=== PATIENT | male | born 1985 ===

== ENCOUNTER 2019-08-15 10:58 | Outpatient (RCR) | payer OTHER, SELFPAY | END 2019-09-02 00:01 | LOC: WOUND 10:58 | PROVIDERS: Visit Provider Surgery | DX: J86.9 Pyothorax without fistula (principal); I96 Gangrene, not elsewhere classified; F17.210 Nicotine dependence, cigarettes, uncomplicated | CPT/HCPCS: 11042; 99212 ==

== ENCOUNTER 2020-04-20 20:18 | Emergency (ER) | payer SELFPAY ==
--- NOTE | 2020-04-20 20:23 | XR_ITS ---
WS: [id number] EXAM: RIGHT FOOT: 3 VIEWS DATE OF EXAMINATION: 04/20/2020, 2036 hours COMPARISON: None. HISTORY: 34 years old with foot pain status post fall skateboarding. FINDINGS: Bone density is normal in appearance. There is an intra-articular fracture involving the base of the fifth metatarsal bone with associated soft tissue swelling in this region. Slight arthritis first met atarsal phalangeal joint. No additional acute fracture is seen. No soft tissue abnormality noted. XR/XR foot RT min 3V* [id number] IMPRESSION: Minimally displaced intra-articular fracture involving the base of the fifth me tatarsal bone.
[2020-04-20 20:27] VITALS: BP 112/83; PULSE 90; RESP 18; TEMP 36.8; O2SAT 98; BMI 25.8
--- NOTE | 2020-04-20 20:51 | W.ED.EXTPRO ---
HPI - Extremity Problem General: Chief complaint: Extremity Injury, Lower Stated complaint: right foot injury Time Seen by Provider: 04/20/20 20:44 Source: patient Mode of arrival: ambulatory Limitations: no limitations History of Present Illness: HPI Narrative: 34-year-old male states he was skateboarding and had a fall today. He states he injured his right foot and right foot pain since then. States pain is sharp in nature and rates it a 5 out of 10. Denies any other injuries. Denies hitting his head. Associated symptoms: Deny chest pain, fever(s) or rash Review of Systems Const: Denies: fever(s), chills, body aches or change in appetite Eyes: Denies: blurry vision or eye discomfort ENMT: Denies: throat pain or dental pain Card: Denies: chest pain Resp: Denies: dyspnea GI: Denies: abdominal pain, nausea, vomiting or diarrhea : Denies: dysuria Musc: Reports: joint pain; Denies: neck pain or back pain Skin/Breast: Denies: rash Neuro: Denies: headache(s) Psych: Denies: depression Angel/Lymph: Denies: easy bruising All/Imm: Denies: urticaria Physical Exam Const: COMMON NORMALS: no acute distress, patient oriented x3 and healthy appearing HENMT: COMMON NORMALS: normocephalic and atraumatic HEAD & SCALP: normocephalic and atraumatic Eye: COMMON NORMALS: Equal, round and reactive pupils present and EOMs intact bilaterally PUPIL: Yes Equal, round and reactive pupils present Neck/C-Spine: COMMON NORMALS: full ROM and supple Chest: COMMONS NORMALS: normal inspection of the chest and normal palpation of entire chest wall Resp: COMMON NORMALS: normal respiratory effort, No retractions, No use of accessory muscles and clear to auscultation bilaterally AUSCULTATION: clear to auscultation bilaterally Cardio: COMMON NORMALS: regular rate, regular rhythm and No murmurs present (Cardio) RATE: regular rate RHYTHM: regular rhythm GI: COMMON NORMALS: Normal to inspection, nondistended, normoactive bowel sounds present, Soft to palpation, non-tender and no masses PALPATION: Yes Soft to palpation Extremity: COMMON NORMALS: normal to inspection and full ROM Neuro: COMMON NORMALS: patient oriented x3, moves all extremities and no focal motor deficits Psych: COMMON NORMALS: mental status grossly normal, Normal thought process present and cooperative THOUGHT PROCESS: Normal thought process present Skin: COMMON NORMALS: no rashes or lesions noted and no wounds GENERAL SKIN EXAM: no rashes or lesions noted Course Vital Signs: Vital signs: Vital Signs Temperature 98.3 F 04/20/20 20:27 Pulse Rate 90 04/20/20 20:27 Respiratory Rate 18 04/20/20 20:27 Blood Pressure 112/83 04/20/20 20:27 Pulse Oximetry 98 04/20/20 20:27 MDM - Extremity (Nontraumatic) MDM Narrative: Medical decision making narrative: Patient presents with a foot fracture from a fall. Patient placed in a splint given crutches and is to follow-up with Dr. Gonzalez. Patient is stable for discharge. He has no signs of any other injuries. Imaging Data^: xr r foot: Attestation: I personally reviewed and interpreted this imaging study as follows: My impression: fracture at base of fifth metatarsal Discharge Plan Discharge Patient Disposition: Home Clinical Impression: Foot fracture, right Qualifiers: Encounter type: initial encounter Fracture type: closed Qualified Code(s): S92.901A - Unspecified fracture of right foot, initial encounter for closed fracture Condition: Stable Prescriptions: [place] 5-325 mg tablet 1 tab PO Q6H PRN (Reason: pain) Qty: 8 RF: 0 Naprosyn 500 mg tablet 500 mg PO BID PRN (Reason: pain) Qty: 20 RF: 0 Discharge Orders: Discharge Order (Routine); Ordered 04/20/20 Ordered By: García Parker Referrals: Jose Gonzalez MD [Physician] - 1-3 days Discharge Diet: Advance as tolerated Discharge Activity: Resume usual activity Coding Level of Care Code ED Human Resources Consultant for [facility] Shailesh
[2020-04-20 22:03] VITALS: BP 120/77; PULSE 72; RESP 14; O2SAT 99
--- NOTE | 2020-04-21 10:23 | DCPLANNER ---
school business manager had message to schedule a follow up appointment for patient with ortho. school business manager called the ortho clinic, spoke with Vira, gave clinic patients information. school business manager was told that patients information would be printed and reviewed. Clinic will call patient with appointment information.
--- NOTE | 2020-04-22 11:28 | DCPLANNER ---
Patient had a follow up appointment scheduled for 04.22.20 with ortho - patient did attend the appointment.
== END 2020-04-20 22:06 | disposition home or self-care (01) ==
PROVIDERS: Emergency Provider Emergency Medicine
DX: S92.351A Displaced fracture of fifth metatarsal bone, right foot, initial encounter for closed fracture (principal); V00.131A Fall from skateboard, initial encounter
CPT/HCPCS: 12345; 29515; 73630; 99281; 99283; E0114

== ENCOUNTER → 2020-05-06 08:16 | Outpatient (BNVA) | payer SELFPAY | PROVIDERS: Visit Provider Podiatrist Foot & Ankle Surgery | DX: S92.351A Displaced fracture of fifth metatarsal bone, right foot, initial encounter for closed fracture (principal); X58.XXXA Exposure to other specified factors, initial encounter | CPT/HCPCS: 73630 ==

== ENCOUNTER → 2020-05-20 08:11 | Outpatient (BNVA) | payer SELFPAY | PROVIDERS: Visit Provider Podiatrist Foot & Ankle Surgery | DX: S92.351D Displaced fracture of fifth metatarsal bone, right foot, subsequent encounter for fracture with routine healing (principal); X58.XXXD Exposure to other specified factors, subsequent encounter | CPT/HCPCS: 73630 ==

== ENCOUNTER → 2020-06-14 08:08 | Outpatient (BNVA) | payer SELFPAY | PROVIDERS: Visit Provider Podiatrist Foot & Ankle Surgery | DX: S92.531A Displaced fracture of distal phalanx of right lesser toe(s), initial encounter for closed fracture (principal); X58.XXXA Exposure to other specified factors, initial encounter | CPT/HCPCS: 73630 ==

== ENCOUNTER → 2020-06-15 08:22 | Outpatient (BNVA) | payer OTHER, SELFPAY | PROVIDERS: Visit Provider Podiatrist Foot & Ankle Surgery | DX: Z11.59 Encounter for screening for other viral diseases (principal) | CPT/HCPCS: 87635 ==

== ENCOUNTER 2020-06-16 22:33 | Emergency (ER) | payer SELFPAY ==
[2020-06-16 22:36] VITALS: BP 117/77; PULSE 89; RESP 17; TEMP 36.6; O2SAT 96; BMI 23.6
--- NOTE | 2020-06-16 22:38 | W.ED.ANXIETY ---
HPI - Anxiety General: Stated Complaint: ANXIETY Time Seen by Provider: 06/16/20 22:36 Source: patient Mode of arrival: ambulatory Limitations: no limitations History of Present Illness: HPI narrative: 34-year-old male who has a Bowers fracture to his right foot and is scheduled for surgery on Sunday. He states he has been having severe anxiety about his surgery. He does appear nervous. He has not been taking anything. Has no other complaints. He does have some slight pain he rates a 2 out of 10. MD complaint: anxiety Associated symptoms: Deny chest pain, chills, fever(s), headache(s), nausea or vomiting Review of Systems Const: Denies: fever(s), chills, body aches or change in appetite Eyes: Denies: blurry vision or eye discomfort ENMT: Denies: throat pain or dental pain Card: Denies: chest pain Resp: Denies: dyspnea GI: Denies: abdominal pain, nausea, vomiting or diarrhea : Denies: dysuria Musc: Denies: neck pain or back pain Skin/Breast: Denies: rash Neuro: Denies: headache(s) Psych: Reports: anxiety Angel/Lymph: Denies: easy bruising All/Imm: Denies: urticaria PFSH ED PFSH: Medical History No pertinent past medical history Surgical History H/O exploratory laparotomy Physical Exam Const: COMMON NORMALS: no acute distress, patient oriented x3 and healthy appearing HENMT: COMMON NORMALS: normocephalic and atraumatic HEAD & SCALP: normocephalic and atraumatic Eye: COMMON NORMALS: Equal, round and reactive pupils present and EOMs intact bilaterally PUPIL: Yes Equal, round and reactive pupils present Neck/C-Spine: COMMON NORMALS: full ROM and supple Chest: COMMONS NORMALS: normal inspection of the chest and normal palpation of entire chest wall Resp: COMMON NORMALS: normal respiratory effort, No retractions, No use of accessory muscles and clear to auscultation bilaterally AUSCULTATION: clear to auscultation bilaterally Cardio: COMMON NORMALS: regular rate, regular rhythm and No murmurs present (Cardio) RATE: regular rate RHYTHM: regular rhythm GI: COMMON NORMALS: Normal to inspection, nondistended, normoactive bowel sounds present, Soft to palpation, non-tender and no masses PALPATION: Yes Soft to palpation Extremity: COMMON NORMALS: normal to inspection and full ROM Neuro: COMMON NORMALS: patient oriented x3, moves all extremities and no focal motor deficits Psych: COMMON NORMALS: mental status grossly normal, Normal thought process present and cooperative THOUGHT PROCESS: Normal thought process present Skin: COMMON NORMALS: no rashes or lesions noted and no wounds GENERAL SKIN EXAM: no rashes or lesions noted MDM - Anxiety MDM Narrative: Medical decision making narrative: Patient presents with anxiety. Will give him Ativan here and writing Vistaril for home. He is well-appearing and stable for discharge. Discharge Plan Discharge Patient Disposition: Home Clinical Impression: Anxiety Condition: Stable Prescriptions: New Vistaril 25 mg capsule 25 mg PO Q8H PRN (Reason: anxiety) Qty: 14 RF: 0 No Action hydrocodone-acetaminophen [[place]] 7.5-325 mg tablet 1 tab PO Q4H PRN (Reason: pain) 7 Days Qty: 30 RF: 0 hydrocodone-acetaminophen [[place]] 5-325 mg tablet 1 tab PO Q6H PRN (Reason: pain) 7 Days Qty: 28 RF: 0 hydrocodone-acetaminophen [[place]] 5-325 mg tablet 1 tab PO Q4H PRN (Reason: pain) 7 Days Qty: 30 RF: 0 Naprosyn 500 mg tablet 500 mg PO BID PRN (Reason: pain) Qty: 20 RF: 0 Discharge Orders: Discharge Order (Routine); Ordered 06/16/20 Ordered By: García Parker Discharge Diet: Advance as tolerated Discharge Activity: Resume usual activity Patient Instructions: Anxiety (ED) Coding Level of Care Code 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
[2020-06-16 22:52] VITALS: PULSE 66; RESP 17; O2SAT 96
== END 2020-06-16 22:47 | disposition home or self-care (01) ==
PROVIDERS: Emergency Provider Emergency Medicine
DX: F41.9 Anxiety disorder, unspecified (principal)
CPT/HCPCS: 12345; 99281; 99282

== ENCOUNTER 2020-06-18 05:57 | Day surgery (SDC) | payer SELFPAY ==
[2020-06-17 16:00] VITALS: BMI 24.4
--- NOTE | 2020-06-18 | SCC_ITS ---
Procedure Done: Open reduction internal fixation right fifth Metatarsal fracture 23 seconds of fluoroscopic guidance, for a cumulative dose of 0.3 mGy, was provided to Dr. Umaña by the radiology department. C-arm images of the RIGHT foot were saved for the patient's permanent record. [facility]
--- NOTE | 2020-06-18 | XR_ITS ---
WS: [id number] C-ARM RADIOGRAPHS RIGHT FOOT; 2 IMAGES HISTORY: ORIF 5th right metatarsal COMPARISON: 06/14/2020 Limited evaluation of the RIGHT foot. There is hardware projecting in expected location of the fifth metatarsal. XR/XR foot RT 2V [id number] IMPRESSION: Intraoperative imaging during fixation fifth metatarsal.
[2020-06-18] MEDS: sodium chloride 0.9% 1,000 ML 30 ML IV (06:30)
[2020-06-18 06:32] VITALS: BP 124/80; PULSE 92; RESP 18; TEMP 36.6; O2SAT 97
--- NOTE | 2020-06-18 06:36 | ANES.PREANE2 ---
Pre-Anesthetic Assessment Pre-Anesthetic Assessment: Height/Weight: Height 1.8 m Weight 79.379 kg Preop Diagnosis: Right fifth metatarsal fracture Proposed Procedure: Operation Date: 06/18/20 07:00 Proposed Procedures p ORIF right fifth Metatarsal fracture 93492 592.351A(Right) - Dylan Umaña DPM Familial anesthetic complications: None Last intake: NPO > 8 hrs Social: Social History: Tobacco Exam: Pre-Anes Outpt Exam: alert, oriented x 3, clear to auscultation bilaterally and regular rate & rhythm Airway: Cervical ROM: WNL (patient states he's unable to achieve 360 degrees of cervical rotation) MP: 3 Dentition: Chipped Hepatic: Hepatic: Hepatitis (Hepatitis C) Neuropsych: Neuropsych: Anxiety Anesthetic Plan: ASA status: 2 Anesthesia: MAC Risk of > 500 ml blood loss (7ml/kg in children): No PFSH Anesthesia PFSH: Medical History No pertinent past medical history Surgical History H/O exploratory laparotomy Data Anesthesia Cardiac Studies: No Data to Display
--- NOTE | 2020-06-18 06:41 | P.HPUD_ITS ---
Surgery/Procedure H&P Update DATE OF PROCEDURE: June 18, 2020 DATE H&P PERFORMED: 06/14/20 H&P UPDATE INFORMATION: I have reviewed H&P completed within last 30 days, I have examined patient prior to procedure, No changes to prior documentation and H&P is in [facility] EMR on date indicated PREOP DIAGNOSIS: Right fifth metatarsal fracture PLANNED PROCEDURE: Operation Date: 06/18/20 07:00 Proposed Procedures p ORIF right fifth Metatarsal fracture 44290 592.351A(Right) - Dylan Umaña DPM
--- NOTE | 2020-06-18 06:41 | PM.OP ---
Operative Report Date of procedure: June 18, 2020 Pre-op Diagnosis: Right fifth metatarsal fracture Post-op diagnosis: same Post-op Findings: None Procedure Done: Open reduction internal fixation right fifth Metatarsal fracture CPT code 84002 Implants: 4-0 nylon. Anant headed screw, partially-threaded, cannulated 5.0 mm x 50 mm Specimens removed/disposition: None Pathology: none sent Surgeon: Dylan Umaña DPM Motorized Squad Commanding Officer: Farhat Anesthesia: MAC Estimated blood loss: Less than 5 mL Tourniquet time: 18 minutes IV fluids: None Urine output: None Complications: None Condition: stable Disposition: PACU Brief History: Patient is a 34-year-old male sustained a right Bowers fracture approximately 2 months ago from a skateboarding accident, was noncompliant with weightbearing status during conservative care, he was advised to remain strict nonweightbearing he continue to walk with his cam boot and return to work. He has developed a delayed union continues to have pain in his right foot at the fracture site he is 2 months out from the time of injury without any significant interval of healing appreciated. Recommended open reduction internal fixation with medullary screw placement risks include pain, bleeding, numbness, infection, persistent delayed union, nonunion, malunion, damage to adjacent soft tissue structures including nerve and tendon, loss of function, persistent swelling, neuritis, need for further surgical intervention. Procedure: Under mild sedation the patient was brought to the operating room and placed on the operating table in supine position. A timeout was performed. Anesthesia was then administered by the anesthesia service. Local anesthesia injected by myself and a right ankle block fashion 30 cc of 0.5% Marcaine plain. Well-padded pneumatic tourniquet applied to the right ankle. Right lower extremity was then scrubbed, prepped and draped utilizing normal aseptic technique. Right foot was examined a weighted with an Esmarch bandage and the tourniquet inflated to 250 mmHg. Attention was directed to the dorsal lateral aspect of the right fifth metatarsal base bony landmarks were palpated including the tuberosity of the fifth metatarsal. Going high and inside with a guidewire for a 5 mm screw to aim the trajectory down the medullary canal guidewire was advanced in a antegrade fashion confirming placement within the medullary canal with AP, oblique and lateral views utilizing the mini C arm noted to be excellent. Utilizing standard AO technique a [place] 5.0 mm x 50 mm headed, partially-threaded cannulated screw was utilized to reduce and fixate the fracture site with reduction appreciated on fluoroscopy. Placement was noted to be excellent on all 3 views utilizing mini C arm. Screw was tightened to 2 finger tightness with the foot held in a neutral and slightly everted position eyes to relieve tension on the peroneal tendon. Guidewire was removed, incision site was flushed with saline solution and closed with 4-0 nylon. Tourniquet was deflated and a prompt hyperemic response was noted to the distal digits of the right foot. Incision site was dressed with Adaptic, sterile 4 x 4, Kerlix, Mario wrap and cam boot was applied. Patient tolerated the procedure and anesthesia well and was transferred to the PACU with vital sign stable and vascular status intact. Following a period of postoperative monitoring he will be discharged home with his girlfriend is to remain strict nonweightbearing to the right foot and elevate his right foot while at rest. Was provided additional pain medication and discharge instructions including my phone number will follow-up on June 25, 2020 at 10 AM in podiatry clinic.
[2020-06-18] MEDS: midazolam 1 mg/mL INJ 2 mL 2 MG IVP (06:44)
[2020-06-18 07:40] VITALS: BP 119/86; PULSE 70; RESP 16; TEMP 36.2; O2SAT 97
[2020-06-18] MEDS: HYDROcodone-acetaminophen 10-325 mg Tablet 1 TAB PO (07:47)
[2020-06-18 07:55] VITALS: BP 120/89; PULSE 70; RESP 16; TEMP 36.6; O2SAT 98
--- NOTE | 2020-06-18 08:34 | ANE.PACU2 ---
Inpatient post-anesthesia follow up: Airway intact: Yes Vital signs: Temperature 98 F Pulse Rate 70 Respiratory Rate 16 Blood Pressure 120/89 Pulse Oximetry 98 Oxygen Delivery Me thod Room Air Oxygen Flow Rate Fraction of Inspir ed Oxygen Hydration adequate: Yes Nausea and vomiting: No Pain level: 8 Mental status: Baseline Additional Comments: Patient offered possibility of nerve block, but he declined due to desire not to delay discharge and he did not want his foot to be numb. patient given norco before discharge.
--- NOTE | 2020-06-18 09:55 | SUR.PHASEII ---
6323 pt still c/o pain to right foot and refusing a block offered by dr hassan with anesthesia states he wants to go home and doesn't want his leg being numb just wants to go home,pt's girlfriend at bedside
== END 2020-06-18 08:45 | disposition home or self-care (01) ==
PROVIDERS: Visit Provider Podiatrist Foot & Ankle Surgery
PROC: (CPT 28485; principal; 2020-06-18 07:00)
DX: S92.351A Displaced fracture of fifth metatarsal bone, right foot, initial encounter for closed fracture (principal); V00.131A Fall from skateboard, initial encounter; B19.20 Unspecified viral hepatitis C without hepatic coma; F41.9 Anxiety disorder, unspecified
CPT/HCPCS: 28485; 12345; 73620; 76000; 96374; C1713; C9290; J0690; J2250; J2704; J3010; J3490; J7030

== ENCOUNTER → 2020-07-01 14:46 | Outpatient (BNVA) | payer SELFPAY | PROVIDERS: Visit Provider Podiatrist Foot & Ankle Surgery | DX: S92.351A Displaced fracture of fifth metatarsal bone, right foot, initial encounter for closed fracture (principal); Z98.890 Other specified postprocedural states; X58.XXXA Exposure to other specified factors, initial encounter | CPT/HCPCS: 73630 ==

== ENCOUNTER 2020-07-03 12:49 | Emergency (ER) | payer SELFPAY ==
[2020-07-03 12:53] VITALS: RESP 18
[2020-07-03 12:54] VITALS: BP 150/102; PULSE 85; RESP 16; TEMP 36.6; O2SAT 97; BMI 25.1
--- NOTE | 2020-07-03 13:18 | ED_ITS ---
HPI - Extremity Problem General: Chief complaint: Extremity Problem,Nontraumatic Stated complaint: pain in right foot after surgery 2wks ago Time Seen by Provider: 07/03/20 13:18 History of Present Illness: MD Complaint: extremity pain (right foot- pt had surgery to fix fracture on 5th metatarsal 2 weeks ago. Denies any reinjury to cause acute pain. ) Onset (ago): week(s) (Surgery to fix fracture-about 2 weeks ago.) Pain Consistency: constant Location: right and lower extremity Severity scale (1-10): 7 Quality: aching Radiation: none Relieving factors: medication (hydrocodone prescribed by Dr. Umaña.) Exacerbating factors: nothing Associated symptoms: Deny chest pain, fever(s) or rash Review of Systems Const: Denies: fever(s), chills or fatigue Eyes: Denies: change in vision or eye discomfort ENMT: Denies: throat pain, odynophagia, nasal discharge or nasal congestion Card: Denies: chest pain, palpitations, edema, swelling of feet/ankles, dyspnea on exertion or orthopnea Resp: Denies: dyspnea, productive cough or non-productive cough GI: Denies: abdominal pain, nausea, vomiting, diarrhea, constipation or hematochezia : Denies: flank pain, difficulty urinating, dysuria or hematuria Musc: Reports: extremity pain (right foot); Denies: neck pain, back pain or extremity swelling Skin/Breast: Denies: rash or new lesions Neuro: Denies: headache(s), numbness in extremities or weakness in extremities PFS ED PFSH: Medical History No pertinent past medical history Surgical History H/O exploratory laparotomy Physical Exam Const: COMMON NORMALS: no acute distress, patient oriented x3, healthy appearing and alert GENERAL APPEARANCE: cooperative and comfortable HENMT: COMMON NORMALS: normocephalic HEAD & SCALP: normocephalic MOUTH: Normal oral and palatal mucosa present THROAT: posterior oropharynx normal and uvula midline Neck/C-Spine: COMMON NORMALS: supple GENERAL: Yes normal visual inspection Resp: COMMON NORMALS: normal respiratory effort, No retractions, No use of accessory muscles and clear to auscultation bilaterally AUSCULTATION: clear to auscultation bilaterally Cardio: COMMON NORMALS: regular rate, regular rhythm, S1 normal heart sound present, S2 normal heart sound present, No gallops present (Cardio), No clicks present (Cardio), No murmurs present (Cardio) and Peripheral pulses 2+ throughout RATE: regular rate RHYTHM: regular rhythm HEART SOUNDS: S1 normal heart sound present and S2 normal heart sound present PERIPHERAL PULSES: Peripheral pulses 2+ throughout GI: COMMON NORMALS: Normal to inspection, nondistended, normoactive bowel sounds present, Soft to palpation, non-tender and no masses PALPATION: Yes Soft to palpation : COMMON NORMALS: Yes no CVA tenderness BLADDER/KIDNEY EXAM: Yes no CVA tenderness Back/Pelvis: COMMON NORMALS: no CVA tenderness Extremity: NARRATIVE EXTREMITY EXAM: Patient's right foot has surgical scar on it. No erythema or warmth present. No signs of infection around surgical site. GENERAL: Yes normal exam except as noted Neuro: COMMON NORMALS: patient oriented x3 and moves all extremities SENSORIUM/ORIENTATION: Yes alert Skin: COMMON NORMALS: no rashes or lesions noted GENERAL SKIN EXAM: no rashes or lesions noted Course Vital Signs: Vital signs: Vital Signs Temperature 97.8 F 07/03/20 12:54 Pulse Rate 85 07/03/20 12:54 Respiratory Rate 16 07/03/20 12:54 Blood Pressure 150/102 07/03/20 12:54 Pulse Oximetry 97 07/03/20 12:54 MDM - Extremity (Nontraumatic) MDM Narrative: Medical decision making narrative: Patient is a 34-year-old male who comes to the ED with acute right foot pain post fifth metatarsal fracture repair surgery. Denies reinjury or accident to cause acute pain. Exam shows a right foot appears normal and healing well post surgery. No signs of infection on right foot or surgical site. Patient currently takes hydrocodone 5mg to help with pain at home. I gave patient a dose of 4 mg IM to help with acute pain. He was then discharged told to contact the Dr. Umaña on Sunday to discuss further pain management. Patient understood and agreed with plan. Discharge Plan Discharge Patient Disposition: Home Clinical Impression: Metatarsal fracture Qualifiers: Encounter type: sequela Metatarsal bone: fifth Fracture type: closed Fracture alignment: nondisplaced Laterality: right Qualified Code(s): S92.354S - Nondisplaced fracture of fifth metatarsal bone, right foot, sequela Condition: Stable Prescriptions: No Action hydrocodone-acetaminophen [[place]] 7.5-325 mg tablet 1 tab PO Q4H PRN (Reason: pain) 7 Days Qty: 30 RF: 0 hydrocodone-acetaminophen [[place]] 5-325 mg tablet 1 tab PO Q6H PRN (Reason: pain) 7 Days Qty: 28 RF: 0 Discharge Orders: Discharge Order (Routine); Ordered 07/03/20 Ordered By: Jacob Holguin Discharge Diet: Regular Discharge Activity: Limit activity as instructed and Use walker/crutches as instructed Activity Restrictions/Additional Instructions: Follow-up with medical provider as directed. Contact Dr. Umaña on Sunday to reevaluate pain management. Continue taking previously prescribed pain medications. Return to the ER or your medical provider if condition worsens. Please read and understand discharge instructions. If any questions, please ask. 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
[2020-07-03] MEDS: morphine 4 mg/mL SDV 1 mL IM (13:46)
== END 2020-07-03 14:15 | disposition home or self-care (01) ==
PROVIDERS: Emergency Provider Physician Assistant
DX: S92.354A Nondisplaced fracture of fifth metatarsal bone, right foot, initial encounter for closed fracture (principal); X58.XXXA Exposure to other specified factors, initial encounter
CPT/HCPCS: 12345; 96372; 99281; 99283; J2270

== ENCOUNTER → 2020-07-22 15:01 | Outpatient (BNVA) | payer SELFPAY | PROVIDERS: Visit Provider Podiatrist Foot & Ankle Surgery | DX: Z47.89 Encounter for other orthopedic aftercare (principal); S92.351D Displaced fracture of fifth metatarsal bone, right foot, subsequent encounter for fracture with routine healing; X58.XXXD Exposure to other specified factors, subsequent encounter | CPT/HCPCS: 73630 ==

== ENCOUNTER → 2020-08-12 13:25 | Outpatient (BNVA) | payer SELFPAY | PROVIDERS: Visit Provider Podiatrist Foot & Ankle Surgery | DX: S92.351A Displaced fracture of fifth metatarsal bone, right foot, initial encounter for closed fracture (principal); Z98.890 Other specified postprocedural states; X58.XXXA Exposure to other specified factors, initial encounter | CPT/HCPCS: 73630 ==

== ENCOUNTER → 2020-08-25 08:24 | Outpatient (BNVA) | payer SELFPAY | PROVIDERS: Visit Provider Podiatrist Foot & Ankle Surgery | DX: S92.351A Displaced fracture of fifth metatarsal bone, right foot, initial encounter for closed fracture (principal); Z98.890 Other specified postprocedural states; S92.901A Unspecified fracture of right foot, initial encounter for closed fracture; X58.XXXA Exposure to other specified factors, initial encounter | CPT/HCPCS: 73630 ==

== ENCOUNTER → 2020-09-22 08:15 | Outpatient (BNVA) | payer SELFPAY | PROVIDERS: Visit Provider Podiatrist Foot & Ankle Surgery | DX: S92.351A Displaced fracture of fifth metatarsal bone, right foot, initial encounter for closed fracture (principal); Z98.890 Other specified postprocedural states; X58.XXXA Exposure to other specified factors, initial encounter | CPT/HCPCS: 73630 ==

== ENCOUNTER 2020-09-25 04:35 | Emergency (ER) | payer SELFPAY ==
[2020-09-25 04:36] VITALS: BP 113/73; PULSE 60; RESP 16; TEMP 36.2; O2SAT 98; BMI 25.1
--- NOTE | 2020-09-25 04:37 | ECG_ITS ---
[facility] Test Date: 2020-09-25 Pat Name: Bunny Weathers Department: Room: Gender: Male Jacquard Card Cutter: : 1985 Requested By: García Parker Order Number: [id number] Reading MD: NEELA SALDIVAR Measurements Intervals [place] Rate: 44 P: 14 MT: 164 QRS: 23 QRSD: 90 T: 33 QT: 416 QTc: 357 Interpretive Statements SINUS BRADYCARDIA INTERPRETATION BASED ON A DEFAULT AGE OF 40 YEARS Compared to ECG 08/23/2019 05:24:27 Sinus tachycardia no longer present Electronically Signed On 09-25-2020 18:16:33 FUNDER by NEELA SALDIVAR [id number]
--- NOTE | 2020-09-25 04:37 | W.ED.OVERDOS ---
HPI - Overdose General: Chief Complaint: Overdose Stated Complaint: OD Time Seen by Provider: 09/25/20 04:36 Source: patient and EMS Mode of arrival: EMS Limitations: no limitations History of Present Illness: HPI Narrative: 34-year-old male who is here with EMS after unintentional overdose. He states he took a Xanax last night girlfriend states he used IV drugs but he refuses. His girlfriend was having difficulty arouse him and called EMS. EMS arrived he states that he was quite lethargic. He is given 0.4 Narcan he is now awake and alert and able answer all my questions. He denies any suicidal homicidal thoughts. Denies any worsening or improving factors. Review of Systems Const: Denies: fever(s), chills, body aches or change in appetite Eyes: Denies: blurry vision or eye discomfort ENMT: Denies: throat pain or dental pain Card: Denies: chest pain Resp: Denies: dyspnea GI: Denies: abdominal pain, nausea, vomiting or diarrhea : Denies: dysuria Musc: Denies: neck pain or back pain Skin/Breast: Denies: rash Neuro: Denies: headache(s) Psych: Denies: depression Angel/Lymph: Denies: easy bruising All/Imm: Denies: urticaria PFSH ED PFSH: Medical History (Updated 09/25/20 @ 05:03 by García Parker MD) No pertinent past medical history Surgical History H/O exploratory laparotomy Physical Exam Const: COMMON NORMALS: no acute distress, patient oriented x3 and healthy appearing HENMT: COMMON NORMALS: normocephalic and atraumatic HEAD & SCALP: normocephalic and atraumatic Eye: COMMON NORMALS: Equal, round and reactive pupils present and EOMs intact bilaterally PUPIL: Yes Equal, round and reactive pupils present Neck/C-Spine: COMMON NORMALS: full ROM and supple Chest: COMMONS NORMALS: normal inspection of the chest and normal palpation of entire chest wall Resp: COMMON NORMALS: normal respiratory effort, No retractions, No use of accessory muscles and clear to auscultation bilaterally AUSCULTATION: clear to auscultation bilaterally Cardio: COMMON NORMALS: regular rate, regular rhythm and No murmurs present (Cardio) RATE: regular rate RHYTHM: regular rhythm GI: COMMON NORMALS: Normal to inspection, nondistended, normoactive bowel sounds present, Soft to palpation, non-tender and no masses PALPATION: Yes Soft to palpation Extremity: COMMON NORMALS: normal to inspection and full ROM Neuro: COMMON NORMALS: patient oriented x3, moves all extremities and no focal motor deficits Psych: COMMON NORMALS: mental status grossly normal, Normal thought process present and cooperative THOUGHT PROCESS: Normal thought process present Skin: COMMON NORMALS: no rashes or lesions noted and no wounds GENERAL SKIN EXAM: no rashes or lesions noted Course Vital Signs: Vital signs: Vital Signs Temperature 97.2 F L 09/25/20 04:36 Pulse Rate 60 09/25/20 04:36 Respiratory Rate 16 09/25/20 04:36 Blood Pressure 113/73 09/25/20 04:36 Pulse Oximetry 98 09/25/20 04:36 MDM - Overdose MDM Narrative: Medical decision making narrative: Unresponsive spell or breathing difficulty. He refused and states that he wants his IV out and wants to leave. I informed him he could get worse and could even cause . He understands these risks. Patient is able answer all my questions appropriately and has medical decision-making capacity at this time. Patient signed out AGAINST MEDICAL ADVICE.History presents after accidental overdose. He ripped all his leads off and refused urinalysis. Patient stated he wanted to leave. I went and spoke to him and recommended at least observe him over an hour to make sure he does not EKG Data^: EKG 1: Attestation: I personally reviewed and interpreted this EKG as follows: EKG interpretation date: 09/25/20 EKG interpretation time: 04:38 Interpretation: sinus addison hr [address] or t wave abnormalities qrs 90 qtc 365 Discharge Plan Discharge Patient Disposition: Left Against Medical Advice Clinical Impression: Drug overdose Qualifiers: Encounter type: initial encounter Injury intent: accidental or unintentional Qualified Code(s): T50.901A - Poisoning by unspecified drugs, medicaments and biological substances, accidental (unintentional), initial encounter Condition: Stable Prescriptions: No Action tramadol [Ultram] 50 mg tablet 50 mg PO Q6H PRN (Reason: pain) 7 Days Qty: 28 RF: 0 tramadol [Ultram] 50 mg tablet 50 mg PO Q4H PRN (Reason: pain) 7 Days Qty: 42 RF: 0 tramadol [Ultram] 50 mg tablet 50 mg PO Q4H PRN (Reason: pain) 7 Days Qty: 42 RF: 0 Discharge Diet: Advance as tolerated Discharge Activity: Resume usual activity Patient Instructions: Polysubstance Abuse (ED) Coding Level of Care Code ED Director Of Social Services for [place] Fwd Exam Comprehensive
[2020-09-25 05:11] VITALS: BP 112/78; PULSE 54; RESP 16; O2SAT 98
[2020-09-25 05:11] LABS: Alanine Aminotransferase 33 U/L (0-41); Albumin Level 4.5 g/dL (3.5-5.2); Alkaline Phosphatase 74 IU/L (40-130); Anion Gap 10.1 (5-19); Aspartate Amino Transferase 27 U/L (0-40); Blood Urea Nitrogen 20 mg/dL (6-20); Calcium 9.5 mg/dL (8.5-10.5); Carbon Dioxide 33 mmol/L (22-29); Chloride 101 mmol/L (98-107); Glomerular Filtration Rate 84.5 mL/min (90-130); Glucose 85 mg/dL (65-115); Osmolality Calculated 292 mOsm/kg (285-295); Potassium 4.1 mmol/L (3.5-5.1); Sodium 140 mmol/L (136-145); Total Bilirubin 0.3 mg/dL (0.15-1.2); Total Protein 7.5 g/dL (6.6-8.7)
[2020-09-25 05:13] LABS: Acetaminophen < 5.0 ug/mL (10-30); Alcohol Level < 10 mg/dL (0-10); Salicylate < 0.3 mg/dL (3-10)
[2020-09-25 05:18] LABS: Basophils % 0.9 %; Eosinophils # 0.1 10^3/uL (0.0-0.8); Eosinophils % 2.4 %; Hematocrit 46.2 % (42.0-52.0); Hemoglobin 15.4 g/dL (11.7-16.6); Lymphocytes % 44.2 %; Mean Corpuscular HGB Conc 33.3 g/dL (30.0-36.0); Mean Corpuscular Hemoglobin 31.4 pg (28.0-34.0); Mean Corpuscular Volume 94.3 fL (80-94); Mean Platelet Volume 9.9 fL (7.4-10.4); Monocytes # 0.5 10^3/uL (0.2-0.9); Neutrophils # 1.89 10^3/uL (1.8-7.7); Neutrophils % 41.5 %; Nucleated Red Blood Cells % 0 %; Platelet Count 204 10^3/cmm (130-400); Red Cell Distribution Width 12.6 % (12.1-15.1); White Blood Count 4.6 10^3/uL (4.0-10.0)
== END 2020-09-25 05:13 | disposition left against medical advice (07) ==
PROVIDERS: Emergency Provider Emergency Medicine
DX: T50.901A Poisoning by unspecified drugs, medicaments and biological substances, accidental (unintentional), initial encounter (principal); Z53.21 Procedure and treatment not carried out due to patient leaving prior to being seen by health care provider
CPT/HCPCS: 12345; 80053; 80307; 85025; 93005; 99282; 99283

== ENCOUNTER → 2021-07-13 16:25 | Outpatient (BNVA) | payer SELFPAY | PROVIDERS: Visit Provider Nurse Practitioner Family | DX: Z20.822 Contact with and (suspected) exposure to COVID-19 (principal) | CPT/HCPCS: 87426 ==

== ENCOUNTER → 2024-01-11 07:55 | Outpatient (BNVA) | payer OTHER, SELFPAY | PROVIDERS: PCP Clinical Nurse Specialist Adult Health; Visit Provider Clinical Nurse Specialist Adult Health | DX: I10 Essential (primary) hypertension (principal); B19.20 Unspecified viral hepatitis C without hepatic coma | CPT/HCPCS: 80053; 80061; 84443; 85025; 86705; 86706; 86709; 86803; 87340; 87522; 87806; 87902 ==

== ENCOUNTER 2024-03-07 06:06 | Outpatient (CLI) | payer OTHER, SELFPAY ==
--- NOTE | 2024-03-07 06:15 | USR_ITS ---
PROCEDURE INFORMATION: Exam: US Abdomen, Limited; Right Upper Quadrant Exam date and time: 03/07/2024 6:35 AM Age: 38 years old Clinical indication: Condition or disease; Liver condition; Hepatitis; Not specified; Additional info: Hep c TECHNIQUE: Imaging protocol: Real time ultrasound of the abdomen with image documentation. Limited exam focused on the right upper quadrant. COMPARISON: No relevant prior studies available. FINDINGS: Liver: Slightly increased echogenicity of the liver, suggestive of fatty infiltration. No discrete mass identified. Patent main portal vein with normal direction of flow. Gallbladder: Normal. No gallstones. There is no gallbladder wall thickening. Biliary ducts: Normal. No stones. No dilation. Pancreas: Visualized pancreas is unremarkable. Right kidney: Normal. No mass. No hydronephrosis. US/US liver [id number] IMPRESSION: Imaging findings of mild hepatic steatosis.
== END 2024-03-07 06:07 | disposition home or self-care (01) ==
PROVIDERS: PCP Clinical Nurse Specialist Adult Health; Visit Provider Family Medicine
DX: B18.2 Chronic viral hepatitis C (principal); K76.0 Fatty (change of) liver, not elsewhere classified
CPT/HCPCS: 76705